=== PATIENT | female | born 1990 | race Caucasian/White ===

== ENCOUNTER 2020-10-08 18:29 | Emergency (ER) | payer OTHER, SELFPAY ==
[~2020-10-08] VITALS: Ht 154.9 cm; Wt 56.7 kg
[2020-10-08 18:50] VITALS: BP_SYST 143
--- NOTE | 2020-10-08 18:50 | NUR ---
PT TRIAGED IN BROWN TENT AWAITING EVALUATION
--- NOTE | 2020-10-08 19:05 | NUR ---
MD PARMAR EXAMINING PT
[2020-10-08 20:22] VITALS: BP_SYST 140
--- NOTE | 2020-10-08 20:22 | NUR ---
Patient given written and verbal discharge instructions and verbalizes understanding. ER MD PARMAR discussed with patient the results and treatment provided. Patient in stable condition. ID arm band removed. . Rx of PREDNISONE given. Patient educated on pain management and to follow up with PMD. Pain Scale 0/10. Opportunity for questions provided and answered. Medication side effect fact sheet provided.
== END 2020-10-08 20:22 | disposition home or self-care (01) ==
LOC: SED 18:29
DX: U07.1 COVID-19 (principal); J45.901 Unspecified asthma with (acute) exacerbation
CPT/HCPCS: 71045; 99284; C9803; U0003